=== PATIENT | male | born 1965 | race Caucasian/White ===

== ENCOUNTER 2017-01-09 09:33 | Emergency (ER) | payer OTHER ==
[~2017-01-09] VITALS: Ht 185.4 cm; Wt 96.0 kg
[2017-01-09 09:36] VITALS: Ht 185.4 cm; Wt 96.0 kg
[2017-01-09] MEDS ORDERED: MECLIZINE 12.5 MG TAB PO STA (09:56)
[2017-01-09 10:21] LABS: ADD SCAN DIFF NO
[2017-01-09 10:24] LABS: BASOPHIL # 0.1 10^3/ul (0.0-0.1); EOSINOPHILS # 0.2 10^3/ul (0.0-0.5); EOSINOPHILS % 4.9 % (0.0-7.0); HEMATOCRIT 47.5 % (42.0-52.0); HEMOGLOBIN 16.4 g/dl (14.0-18.0); LYMPHOCYTES # 1.8 10^3/ul (0.8-2.9); LYMPHOCYTES % 36.5 % (15.0-51.0); MEAN CORPUSCULAR HEMOGLOBIN 29.3 pg (29.0-33.0); MEAN CORPUSCULAR HGB CONC 34.5 g/dl (32.0-37.0); MEAN PLATELET VOLUME 10.1 fl (7.4-10.4); MONOCYTE # 0.4 10^3/ul (0.3-0.9); MONOCYTES % 7.8 % (0.0-11.0); NEUTROPHIL # 2.4 10^3/ul (1.6-7.5); NEUTROPHILS % 49.6 % (39.0-77.0); PLATELET COUNT 216 10^3/UL (140-415); RED BLOOD COUNT 5.59 10^6/ul (4.70-6.10); RED CELL DISTRIBUTION WIDTH 12.6 % (11.5-14.5); WHITE BLOOD COUNT 4.9 10^3/ul (4.8-10.8)
--- NOTE | 2017-01-09 10:39 | RADRPT ---
PROCEDURE: XR Chest AP portable CLINICAL INDICATION: Short of breath TECHNIQUE: An AP portable radiograph of the chest was submitted. COMPARISON: None. FINDINGS: Support Hardware: None Cardiovascular: The cardiovascular silhouette appears unremarkable. Lung Walker: The lung walker appear clear with no nodule, alveolar infiltrate, or interstitial promi nence evident. Pleural Spaces: No pneumothorax or pleural effusion is identified. Osseous Structures: Moderate diffuse degenerative spine changes are noted. Soft Tissues: The soft tissues appear unremarkable. IMPRESSION: Unremarkable portable chest. Physician Lei Date Time Electronically viewed and signed by Marty Ríos Physician on 01/09/2017 10:38 RH/
[2017-01-09 10:41] LABS: ALBUMIN 4.8 g/dl (3.3-4.9); CHLORIDE 106 mmol/L (97-110); SODIUM 142 mmol/L (135-144)
[2017-01-09 10:42] LABS: POTASSIUM 4.4 mmol/L (3.5-5.1)
[2017-01-09 10:44] LABS: ALANINE AMINOTRANSFERASE 64 IU/L (13-69); ALKALINE PHOSPHATASE 86 IU/L (42-121); ANION GAP 15 (8-16); ASPARTATE AMINO TRANSFERASE 43 IU/L (15-46); BILIRUBIN,INDIRECT 0.8 mg/dl (0-1.1); BILIRUBIN,TOTAL 0.8 mg/dl (0.2-1.3); BLOOD UREA NITROGEN 14 mg/dl (7-20); CALCIUM 9.6 mg/dl (8.4-10.2); CARBON DIOXIDE 25 mmol/L (21-31); CREATININE 0.93 mg/dl (0.61-1.24); GLUCOSE 86 mg/dl (70-220); TOTAL PROTEIN 7.8 g/dl (6.1-8.1)
--- NOTE | 2017-01-09 10:44 | ERD ---
ER Documentation Chief Complaint Date/Time DATE: 01/09/17 TIME: 10:40 Chief Complaint BODYACHE, DIZZINESS STARTED YESTERDAY HPI This is a 51-year-old male with history of high cholesterol presenting to the emergency department complaining of episodes of cold sweats, shakiness, dizziness that occurred in the past couple days. Patient states that yesterday it started in the morning and states that shortness of breath lasted throughout the day. He denies any chest pain, fevers, cough, sore throat, ear pain, tinnitus. Patient does admit to having dizziness when he turns his head earlier today, but denies other symptoms at this moment. He denies any nausea, vomiting, diarrhea ROS All systems reviewed and are negative except as per history of present illness. Allergies Allergies: Coded Allergies: No Known Allergy (Unverified , 01/09/17) PMhx/Soc Medical and Surgical Hx: pt denies Medical Hx, pt denies Surgical Hx Hx Alcohol Use: Yes Hx Substance Use: No Hx Tobacco Use: No Smoking Status: Never smoker Physical Exam Vitals Vital Signs Date Time Temp Pulse Resp B/P Pulse Ox O2 Delivery O2 Flow Rate FiO2 01/09/17 09:36 98.4 78 18 163/85 96 Physical Exam GENERAL: well-developed/well-nourished, in no apparent distress, non-toxic appearing HENT: NC/AT, bilateral tympanic membrane is normal with good cone of light, nares patent, oropharynx clear without exudates EYES: Conjunctiva normal, PERRLA, EOMI, no nystagmus noted NECK: Supple, no lymphadenopathy PULM: CTA bilaterally, no rales, rhonchi, or wheezing heard CV: Normal S1S2, RRR, good capillary refill GI: Soft, non-distended, normal bowel sounds, non-tender BACK: No midline tenderness, no masses, No CVAT EXT: No clubbing, cyanosis, or edema NEURO: Alert and orientated to person, place, and time. CN II-IIX intact. Gait and coordination were normal. Hand lead security officer strength were equal and within normal limits SKIN: Intact, normal turgor PSYCH: Normal mood and mentation, patient denied SI Result Diagram: 01/09/17 1010 01/09/17 1010 Results 24 hrs Laboratory Tests Test 01/09/17 10:08 5/20/17 10:10 Bedside Glucose 97mg/dL White Blood Count 4.910^3/ul Red Blood Count 5.5910^6/ul Hemoglobin 16.4g/dl Hematocrit 47.5% Mean Corpuscular Volume 85.0fl Mean Corpuscular Hemoglobin 29.3pg Mean Corpuscular Hemoglobin Concent 34.5g/dl Red Cell Distribution Width 12.6% Platelet Count 71325^3/UL Mean Platelet Volume 10.1fl Neutrophils % 49.6% Lymphocytes % 36.5% Monocytes % 7.8% Eosinophils % 4.9% Basophils % 1.0% Nucleated Red Blood Cells % 0.0/100WBC Neutrophils # 2.410^3/ul Lymphocytes # 1.810^3/ul Monocytes # 0.410^3/ul Eosinophils # 0.210^3/ul Basophils # 0.110^3/ul Nucleated Red Blood Cells # 0.010^3/ul Sodium Level 142mmol/L Potassium Level 4.4mmol/L Chloride Level 106mmol/L Carbon Dioxide Level 25mmol/L Anion Gap 15 Blood Urea Nitrogen 14mg/dl Creatinine 0.93mg/dl Glucose Level 86mg/dl Calcium Level 9.6mg/dl Total Bilirubin 0.8mg/dl Direct Bilirubin 0.00mg/dl Indirect Bilirubin 0.8mg/dl Aspartate Amino Transf (AST/SGOT) 43IU/L Alanine Aminotransferase (ALT/SGPT) 64IU/L Alkaline Phosphatase 86IU/L Troponin I < 0.012ng/ml Total Protein 7.8g/dl Albumin 4.8g/dl Globulin 3.00g/dl Albumin/Globulin Ratio 1.60 Current Medications Medications (Trade) Dose Ordered Sig/Chelita Route PRN Reason Start Time Stop Time Status Last Admin Dose Admin Meclizine HCl (Antivert) 25 mg ONCE STAT PO 01/09/17 09:56 01/09/17 09:58 DC 01/09/17 10:02 Procedures/MDM This is a 51-year-old male with a history of high cholesterol presenting to the emergency department with multiple nonspecific complaints. Patient states that he has had a few episodes of cold sweats and shakiness that resolves with a few episodes of shortness of breath that resolved and dizziness that is sometimes reproducible when he turns his head. Differentials include anxiety, peripheral vs central vertigo, infection, cardiac diseases, pulmonary diseases, endocrine or metabolic disease. On examination patient appears well, he is speaking clearly he does not appear to be ill. He has stable vital signs and does not exhibit any of the symptoms that he has been discussing. He had a normal neurological exam. Lab work was done in the ED, Lab work was drawn. CBC did not show any evidence of leukocytosis or anemia. CMP did not show any evidence of renal, liver, or electrolyte abnormalities. Troponin normal. EKG was done and did not show any evidence of STEMI or arrhythmia. Chest x-ray did not show any evidence of pneumonia, pleural effusion or pneumothorax. In the ED a trial of Antivert was given and I have reassessed him he states that he still feels better. Patient is stable for home. Discussed to follow-up with the primary care physician tomorrow for further action management. Neurovascularly intact. Discussed to return to the ER if condition worsens or not improving as expected. Patient understood and agreed with this plan. EKG: read and signed off by myself and Rate/Rhythm: Normal Sinus Rhythm at 66bpm QRS, ST, T-waves: non-specific T wave changes in V1, aVR Impression: No evidence of ischemia or arrhythmia CXR: radiologist stated unremarkable portable chest No evidence of infiltrates, pneumothorax or pleural effusion Departure Diagnosis: Primary Impression: Dizziness Condition: Stable ADE GUILLORY PA-C January 09, 2017 10:44
[2017-01-09 10:58] LABS: TROPONIN-I < 0.012 ng/ml (0.00-0.12)
== END 2017-01-09 11:28 | disposition home or self-care (01) ==
LOC: FTE 09:33
DX: R42 Dizziness and giddiness (principal)
CPT/HCPCS: 71010; 80053; 82962; 84484; 85025; 93005